=== PATIENT | female | born 1965 | race Caucasian/White ===

== ENCOUNTER 2021-09-13 12:27 | Emergency (ER) | payer SELFPAY ==
[2021-09-13 12:44] LABS: HEMOGLOBIN 10.2 gm/dl (12.3-15.3); RED BLOOD COUNT 3.23 M/UL (4.00-5.10)
[2021-09-13 13:01] LABS: WHITE BLOOD COUNT 21.7 K/UL (4.5-11.0)
[2021-09-13 13:24] LABS: BUN/CREATININE RATIO 16 (0-10)
== END 2021-09-13 15:30 | disposition expired ==
LOC: ER1 12:27
PROVIDERS: Student in an Organized Health Care Education/Training Program
DX: I46.9 Cardiac arrest, cause unspecified (principal)
CPT/HCPCS: 31500; 80053; 82550; 82553; 84484; 85025; 92950; 99285; J0171; J2997